=== PATIENT | female | born 1940 | race Caucasian/White ===

== ENCOUNTER 2023-08-22 18:48 | Inpatient (IN) | payer MEDICARE, SELFPAY ==
[2023-08-22] VITALS (16 sets, daily range): BP systolic 121–167; BP diastolic 52–117; BMI 27.4
--- NOTE | 2023-08-22 17:51 | ED.GENMED ---
History of Present Illness
General
Chief Complaint: Cardiac Symptoms
Source: patient and physician
Exam Limitations: dementia
Time Seen by Provider: 08/22/23 17:51
History of Present Illness
History of Present Illness:
See MDM
Past History
Past History
ED Past Medical History: HTN and Hypercholesterolemia
ED Past Surgical History: Cardiac
Social History
Tobacco: Non-smoker
Alcohol: None
Phy Exam
Physical Exam
Physical Exam:
See MDM
MDM/Problems Addressed
Differential Diagnosis Includes:
HPI and MDM Narrative:
83-year-old female presenting from [place] emergency department for third-degree block. Patient was evaluated in the emergency department at [place] by Dr. Valdez. He called me explain the situation. She requires transfer to [facility]
for pacemaker battery change. He also made [facility] charge lpn Dr. Ascencio aware. Patient has a permanent pacemaker and is pacemaker dependent. Her battery is at end-of-life and it is in safe mode. Patient is demented and offers no complaint to
me
When EMS arrived, they indicated that her blood pressure was low. On arrival, blood pressure has normalized. Patient is pleasantly demented and offers no complaints.
When patient arrived, I made the hospitalist and Dr. Ascencio aware. Dr. Ascencio will make his colleague Dr. Rodriguez aware since she is on-call
Physical exam
General: Lying in bed comfortably
HEENT: protecting airway
Neck: appears supple
CV: No evidence of cyanosis. Bradycardic but regular
Resp: No accessory muscle use. Lungs clear
Abd: Non-distended
Extremities: No deformities
Neuro: Confused. Moving all 4 extremities
Psych: Flat affect
Skin: Intact
Problems Addressed including Acute and Chronic Conditions affecting care:
1. Complete heart block
Acuity: acute
Prognosis: unstable
Details: Secondary to pacemaker battery end-of-life. ZOLL pads placed on arrival. Cardiology made aware
Updates
Differential Diagnosis (but not limited to): Heart block, pacemaker dysfunction
Testing considered:
Drug therapy (if applicable): OTC meds, please see d/c instruction regarding Rx drugs
Amount and/or Complexity of Data Reviewed
Clinical info obtained from: Patient , Cardiology
External data reviewed: Patient presents with blood work done at [place] showing no significant abnormalities
Labs I independently reviewed (but not limited to): Electrolytes within normal limit
Radiology: N/A
Pulse Ox: not hypoxic
EKG independently reviewed: Ventricular paced, bradycardic, no STEMI
Adult High School Instructor: Ventricular paced
Critical Care: The high probability of a clinically significant, sudden or life threatening deterioration of the cardiovascular system(s) required my full and direct attention, intervention and personal management. The aggregate critical care time
was 31 minutes. This time is in addition to time spent performing reported procedures but includes the following:
[x] Data Review and interpretation
[x] Patient assessment and monitoring of vital signs
[x] Documentation
[x] Medication orders and management
Risk of Complication:
Social Determinants of health: Good social support
Discussed with other providers: Hospitalist, charge lpn
Escalation of Care includes Admit/Obs: Given the heart block and being pacer dependent, will admit for pacemaker battery change
Occasional wrong word or 'sound a like' substitutions may have occurred due to the inherent limitations of voice recognition software. Read the chart carefully and recognize, using context, where substitutions have occurred.
*Critical Care Note
Total Time (30-74mins, 75-104mins- exclusive of procedures): 31 min
ED Attending Note
-
Portions of this chart may have been created with voice recognition software.� Occasional wrong word or��sound alike� substitutions may have occurred due to the inherent limitations of voice recognition software.
Discharge Plan
Departure
Patient Disposition: Admit
Date of Disposition: 08/22/23
Time of Disposition: 17:53
Admit to: CVICU
Presentation/result/management discussed w/ accepting MD/DO: Hospitalist
Discharge Problem:
Third degree heart block
--- NOTE | 2023-08-22 18:00 | HPS.HSE ---
Addendum entered and electronically signed by Og Catalan MD 08/22/23 18:31:
I saw and examined the patient.
The CARDIAC REHAB NURSE or PA's note was reviewed and I agree with the note.
Comment: 83-year-old female sent from [place] ER for pacemaker generator change tomorrow. Her pacemaker battery has been extremely low and she is in safety mode.
167/65, 50, 18, 96% RA
NAD, awake and alert, NCAT
queenie, reg rhythm, normal S1/S2
CTAB
CN2-12 intact
Tele with 3rd deg HB, rate 50
BMP and CBC from [facility] reviewed, unremarkable
Third-degree heart block due to low pacemaker battery:
-For generator change tomorrow
-Case discussed with Dr. Walker
-admit ti IVU
-Zol pads to remain in place
-c/s to cardiology, Dr. Minoo Rodriguez is electronic industrial controls mechanic [facility]
DM2:
-holding Metformin
-SSI/accuchecks for now
-diabetic diet until midnight after which the patient will be n.p.o.
Original Note:
Family Physician
-
Family Physician:
Chief Complaint
-
pacer battery severely low in power
History of Present Illness
83-year-old with past medical history for hypertension, borderline diabetes, A-fib, heart block, Parkinson dementia presented to us from [place] for pacer change. Patient had appointment with acid etch operator today and was noted to have low battery
and pacer. Patient denied any chest pain, short of breath. Patient denied any headache, dizziness, syncopal episode. Patient denied fever, chills. Patient denied abdominal pain, nausea, vomiting, diarrhea. Patient denied dysuria hematuria.
Patient had pacemaker since 2013.
Family knew, her pacer battery was in low since October. Since the hip replacement patient was in rehab, long term and took a very long time to get an cardiology appointment .
Medical History
Past Medical History
Past Medical History: Reports Other
Additional Past Medical History:
Hypertension
Borderline diabetes
A-fib
Heart block
Parkinson dementia
Past Surgical History: Reports Other
Additional Past Surgical History:
Left chest wall pacemaker
Partial hip replacement
Appendectomy
Cholecystectomy
Lumbar fusion
Melanoma on scalp removed
Social History
Tobacco: Non-smoker
Alcohol: None
Drug: None
Personal: Single
Living: Assisted Living
Family History
Family History: Not pertinent
Allergies / Home Medications
Allergies reflects when Allergies were last updated in [employer].
Home Medications with original date entered in [employer]
Allergy/Medication List:
Allergies
Allergy/AdvReac Type Severity Reaction Status Date / Time
Penicillins Allergy Rash Verified 08/22/23 17:53
Home Medications
acetaminophen 500 mg tablet 1,000 mg PO BID PRN mild pain/fever 08/22/23
atorvastatin 40 mg tablet 40 mg PO DAILY 08/22/23
bisacodyl 10 mg rectal suppository (Dulcolax (bisacodyl)) 10 mg IA DAILY PRN constipation 08/22/23
donepezil 5 mg tablet 5 mg PO BID 08/22/23
duloxetine 30 mg capsule,delayed release 30 mg PO DAILY 08/22/23
magnesium hydroxide 400 mg/5 mL oral suspension (Milk of Magnesia) 30 ml PO DAILY PRN constipation 08/22/23
memantine 10 mg tablet 10 mg PO BID 08/22/23
metformin 500 mg tablet 500 mg PO BID 08/22/23
risperidone 0.5 mg tablet 0.25 mg PO DAILY 08/22/23
sennosides 8.6 mg-docusate sodium 50 mg tablet 1 tab-cap PO DAILY 08/22/23
sodium phosphates 19 gram-7 gram/118 mL enema (Fleet Enema) 118 ml IA DAILY PRN constipation 08/22/23
venlafaxine 37.5 mg tablet,extended release 24 hr 37.5 mg PO BID 08/22/23
Review of Systems
-
Constitutional: Reports No Symptoms
EENT: Reports No Symptoms
Respiratory: Reports No Symptoms
Cardiac: Reports No Symptoms
Abdomen/GI: Reports No Symptoms
: Reports No Symptoms
Musculoskeletal: Reports No Symptoms
Skin: Reports No Symptoms
Neurological: Reports No Symptoms
Endocrine: Reports No Symptoms
Hematologic/Lymphatic: Reports No Symptoms
Psych: Reports No Symptoms
Physical Exam
Vital Signs
Vital Signs
Pulse Resp BP Pulse Ox
50 18 167/65 96
08/22/23 17:48 08/22/23 17:48 08/22/23 17:48 08/22/23 17:48
Physical Exam
General: Well Developed, Well Nourished and No Apparent Distress
HEENT: NormoCephalic, Moist mucous membranes and Atraumatic
Respiratory: Clear
Cardiac: S1/S2 and Regular Rhythm; No Murmur or Rub
GI: Soft, Non Tender, Non Distended and Normal Bowel Sounds; No Organomegaly
Rectal: Deferred by Provider
Musculoskeletal: No Clubbing, No Cyanosis and No Edema
Skin: No Rash
Neuro: AO x 3 and Nonfocal/grossly intact
Psych: Calm
Data Reviewed
-
Lab Data: Labs Reviewed by me
Impression/Plan
-
#complete heart block/ pacer battery low
-for generator change tomorrow
-cardiology consulted
-NPO after MN
-Obtain EKG
#hld
-statin continued
#Parkinson dementia/depression
-Aricept continued
-duloxetine continued
-memantine continued
-Risperidone continued
-Venlafaxine continued
# Diabetes
-Hold metformin
-Sliding scale
-Carbohydrate controlled diet until midnight
-N.p.o. after midnight
# DVT prophylaxis
-SCDs
# CODE STATUS
-DNR
[2023-08-22 18:08] LABS: % Basophils 0.4 % (0-2); % Eosinophils 5.4 % (0-6); % Immature Granulocytes 0.6 % (0-0.5); % Lymphocytes 30.1 % (20.5-51.1); % Monocytes 7.5 % (1.7-9.3); Absolute Eosinophils 0.5 10^3/uL (0-0.7); Absolute Immature Granulocytes 0.1 10^3/uL (0-0.05); Absolute Lymphocytes 2.7 10^3/uL (1.2-3.4); Absolute Monocytes 0.7 10^3/uL (0.1-0.6); Hematocrit 41.5 % (37.0-47.0); Mean Corp Hgb Conc. 33.7 g/dL (33.0-37.0); Mean Corpuscular Hgb 31.5 pg (27.0-31.0); Mean Corpuscular Volume 93.3 fL (81.0-99.0); Mean Platelet Volume 9.5 fL (7.4-10.4); Nucleated Red Blood Cells % 0 %; Platelet Count 276 10^3/uL (130-400); Red Blood Cell Count 4.45 10^6/uL (4.20-5.40); Red Cell Dist. Width 13.1 % (11.5-14.5); White Blood Cell Count 8.9 10^3/uL (4.8-10.8)
[2023-08-22 18:20] LABS: APTT 30.2 Sec (23.4-35.0)
[2023-08-22 18:23] LABS: ALT (SGPT) 22 U/L (0-35); AST (SGOT) 29 U/L (14-36); Albumin 3.8 g/dl (3.5-5.0); Alkaline Phosphatase 85 U/L (38-126); Blood Urea Nitrogen 21 mg/dl (7-17); Carbon Dioxide 28 mmol/L (22-30); Chloride 100 mmol/L (98-107); Glucose 139 mg/dl (70-99); Magnesium 1.5 mg/dl (1.6-2.3); Potassium 4.1 mmol/L (3.5-5.1); Sodium 139 mmol/L (135-145); Total Protein 6.6 g/dl (6.3-8.2); eGFR > 60.00
[2023-08-22 18:51] LABS: TSH Reflex To Free T4 1.89 uIU/ml (0.47-4.68)
[2023-08-22 19:20] LABS: Hematocrit 38.7 % (37.0-47.0); Hemoglobin 13.1 g/dL (12.0-16.0); Mean Corp Hgb Conc. 33.9 g/dL (33.0-37.0); Mean Corpuscular Hgb 31.7 pg (27.0-31.0); Mean Corpuscular Volume 93.7 fL (81.0-99.0); Mean Platelet Volume 9.4 fL (7.4-10.4); Platelet Count 255 10^3/uL (130-400); Red Blood Cell Count 4.13 10^6/uL (4.20-5.40); Red Cell Dist. Width 12.9 % (11.5-14.5); White Blood Cell Count 7.7 10^3/uL (4.8-10.8)
[2023-08-22] MEDS: MAGNESIUM OXIDE 500 MG PO (22:27)
[2023-08-22] MEDS: NAMENDA 10 MG PO (23:46)
[2023-08-22] MEDS: EFFEXOR XR 37.5 MG PO (23:46)
[2023-08-22] MEDS: ARICEPT 5 MG PO (23:46)
[2023-08-23] VITALS: BP 112/77
[2023-08-23 00:31] VITALS: BP 141/49
--- NOTE | 2023-08-23 00:45 | PTCARENOTE ---
Received patient from ED at 0030, patient Alert to self only, at times non verbal. Patient oriented to room/unit. Date, time, location and situation reinforced with patient. Bed alarm applied to patients bed for safety. Patient Vpaced on monitor
with HR in the 50's, VSS, lungs diminished bilaterally, SPO2 94% on RA. Patient incontinent bowel/bladder, attends CDI at this time. Full assessment completed as documented, plan of care explained to patient.
[2023-08-23 01:05] VITALS: BMI 27.4
[2023-08-23 03:52] VITALS: BP 141/52
--- NOTE | 2023-08-23 03:52 | PTCARENOTE ---
no acute changes in assessment, patient remains Vpaced with HR in the 50's, VSS.
[2023-08-23 04:49] LABS: Hemoglobin 13.4 g/dL (12.0-16.0); Mean Corp Hgb Conc. 33.5 g/dL (33.0-37.0); Mean Corpuscular Hgb 31.2 pg (27.0-31.0); Mean Corpuscular Volume 93.2 fL (81.0-99.0); Mean Platelet Volume 9.6 fL (7.4-10.4); Platelet Count 258 10^3/uL (130-400); Red Blood Cell Count 4.29 10^6/uL (4.20-5.40); Red Cell Dist. Width 12.9 % (11.5-14.5); White Blood Cell Count 9.4 10^3/uL (4.8-10.8)
[2023-08-23 05:32] LABS: Blood Urea Nitrogen 16 mg/dl (7-17); Calcium 9.5 mg/dl (8.4-10.2); Carbon Dioxide 29 mmol/L (22-30); Chloride 102 mmol/L (98-107); Estimated Creatinine Clearance 68 ml/min; Glucose 166 mg/dl (70-99); Potassium 4.1 mmol/L (3.5-5.1); Sodium 138 mmol/L (135-145); eGFR > 60.00
--- NOTE | 2023-08-23 07:19 | CON.CAR ---
Addendum entered and electronically signed by Max Montalvo DO 08/23/23 09:15:
I saw and examined the patient.
The Desulfurizer Operator's note was reviewed and I agree with the note.
Comment:
Plan:
Pt was transferred from [facility] for gen change
Dr Walker to do gen change today
Outpt follow up with [facility]
Stable cv status
Consider echo
Reviewed with nursing.
Original Note:
Consultation
Consultation Request
Date/Time Consultation Requested: 08/22/23 at 1752
Date/Time Consultation Performed: 09/12/23 at 0745
Requesting Provider: Dr. Catalan
Performing Provider: Dr. Montalvo
Reason for Consultation: ER to ER transfer for generator change
Medical History
-
History of Present Illness:
Patient came to [facility] from [facility] ER last evening for generator change and cardiology is consulted. Patient with dementia and was undergoing rehab at [facility] after hip surgery. Patient has a PPM, unknown brand, in place since 2013. Not
clear which column precaster the patient previously followed with, but patient's family reported to ER staff that they were aware of patient's pacemaker generator being near [place] as far back as 10/2022. Patient was seen as a new patient at [facility] yesterday
and on device check was in safe mode and pacing at VOO 50. Patient was sent to [facility] ER and then transferred to ER with a plan for generator change today. Patient denies chest pain, SOB or syncope, but is a poor historian overall.
PMH:
PPM, unknown brand since 2013
Dementia
DM 2
Past Medical History
Past Medical History: Other (in HPI)
Past Surgical History: Appendectomy, Cardiac (PPM), Cholecystectomy and Orthopedic
Social History
Tobacco: Non-Smoker
Alcohol: None
Drug: None
Living: Senior Living
Family History
Family History: Unable to Obtain
Allergies / Home Medications
Allergy/AdvReac Type Severity Reaction Status Date / Time
Penicillins Allergy Rash Verified 08/22/23 17:53
Medication Instructions Recorded Confirmed Type
acetaminophen 500 mg tablet 1,000 mg PO BID PRN mild pain/fever 08/22/23 08/22/23 History
atorvastatin 40 mg tablet 40 mg PO DAILY 08/22/23 08/22/23 History
bisacodyl 10 mg rectal suppository 10 mg ID DAILY PRN constipation 08/22/23 08/22/23 History
(Dulcolax (bisacodyl))
donepezil 5 mg tablet 5 mg PO BID 08/22/23 08/22/23 History
duloxetine 30 mg capsule,delayed 30 mg PO DAILY 08/22/23 08/22/23 History
release
magnesium hydroxide 400 mg/5 mL 30 ml PO DAILY PRN constipation 08/22/23 08/22/23 History
oral suspension (Milk of Magnesia)
memantine 10 mg tablet 10 mg PO BID 08/22/23 08/22/23 History
metformin 500 mg tablet 500 mg PO BID 08/22/23 08/22/23 History
risperidone 0.5 mg tablet 0.25 mg PO DAILY 08/22/23 08/22/23 History
sennosides 8.6 mg-docusate sodium 1 tab-cap PO DAILY 08/22/23 08/22/23 History
50 mg tablet
sodium phosphates 19 gram-7 118 ml ID DAILY PRN constipation 08/22/23 08/22/23 History
gram/118 mL enema (Fleet Enema)
venlafaxine 37.5 mg 37.5 mg PO BID 08/22/23 08/22/23 History
tablet,extended release 24 hr
Review of Systems
-
History Source: Patient and Transfer Record
All other systems: Negative unless noted
Physical Exam
Vital Signs
Temp Pulse Resp BP Pulse Ox
98.0 F 50 16 141/52 93
08/23/23 03:53 08/23/23 06:00 08/23/23 03:53 08/23/23 03:52 08/23/23 03:53
GEN: NAD, AAO to self only
HEENT: EOMI, MMM
LUNGS: Clear anterolaterally with poor inspiratory effort, no wheeze or rales
CV: Reg, S1/S2, no murmur
ABD: soft, BS+, NT, ND
EXT: Trace to +1 B/L LE edema. No clubbing, cyanosis or lesions B/L
NEURO: Gross non-focal
SKIN: Warm, dry and pink. No rash
Lab Results
08/23/23 04:28
08/23/23 04:28
Impression / Plan
-
PCP: Dr. Suzanna Valencia
Cardiology: New patient to [facility], unknown previous
Impression:
[facility] ER to ER transfer for near battery depletion of PPM 08/22/23
3rd degree heart block, pacemaker dependent
PPM, unknown brand since 2013
tripped to safe mode, VOO 50
Dementia
DM 2
Plan:
-Patient came to [facility] from [facility] ER last evening for generator change and cardiology is consulted. Patient with dementia and was undergoing rehab at [facility] after hip surgery. Patient has a PPM, unknown brand, in place since 2013. Not
clear which column precaster the patient previously followed with, but patient's family reported to ER staff that they were aware of patient's pacemaker generator being near [place] as far back as 10/2022. Patient was seen as a new patient at [facility] yesterday
and on device check was in safe mode and pacing at VOO 50. Patient was sent to [facility] ER and then transferred to [facility] with a plan for generator change today. Patient denies chest pain, SOB or syncope, but is a poor historian overall.
-NPO for generator change today
-Currently VOO at 50 while in safe mode. ECG reviewed by me paced at 50.
-EF unknown and no records available, none in her paper chart, not sure if they were misplaced in the ER. Will check with column precaster performing her generator change to see if they want an echo. Apparently this was a new patient to the [facility] office
yesterday
-Labs reviewed by me with stable renal function
--- NOTE | 2023-08-23 07:37 | W.PN.HOSP.TC ---
Addendum entered and electronically signed by Og Catalan MD 08/23/23 13:05:
Unexpected rapid recovery.
Total time spent on d/c = 31 min. This included today's physical exam, progress note, review of laboratory and diagnostic data, preparation of discharge documents and prescriptions, and discussions about the pt's hospital course and discharge plan
with the patient and other medical illustrator involved in the patient's care.
Original Note:
Today's Communication/Plan
-
See bold
Assessment / Plan
Assessment / Plan
Gen: NAD, awake and alert
Eyes: EOMI, PERRLA, no scleral icterus.
Neck: supple.
CV: Bradycardic, regular rhythm, +S1/S2, no m/r/g.
Resp: CTAB anteriorly, no rales, wheezes, or rhonchi.
Abd: +BS, soft, NT, ND
Skin: No rashes.
Neuro: CN 2-12 intact, non-focal.
Psych: Normal mood and affect.
Third-degree heart block due to low pacemaker battery:
-For generator change today
-Cardiology following
DM2:
-holding Metformin
-SSI/accuchecks
HLD:
-cont statin
Parkinson's Disease:
-with Parkinson's dementia
-cont Aricept/Namenda
Depression:
-cont Venlafaxine/Risperdone/Cymbalta
DNR/SCDs
Anticipated Discharge: Within 24 hours
Subjective/Interval History
-
Date of Service: August 23, 2023
Patient currently not answering questions. As per nursing patient has had no acute complaints.
Objective Data
-
Labs:
Laboratory Results
08/23/23
04:28
WBC 9.4
Hgb 13.4
Hct 40.0
Plt Count 258
Sodium 138
Potassium 4.1
Chloride 102
Carbon Dioxide 29
BUN 16
Creatinine 0.5 L
Glucose 166 H
Calcium 9.5
Vital Signs:
Vital Signs
Temp Pulse Resp BP Pulse Ox
98.0 F 50 16 141/52 93
08/23/23 03:53 08/23/23 07:00 08/23/23 03:53 08/23/23 03:52 08/23/23 03:53
[2023-08-23 08:28] VITALS: BP 139/53
[2023-08-23 08:30] LABS: Glucose - Point of Care 176 mg/dl (70-99)
[2023-08-23 08:54] LABS: Glycohemoglobin (HgbA1c) 8.8 % (4.0-5.6)
[2023-08-23] MEDS: EFFEXOR XR 37.5 MG PO (10:13)
[2023-08-23] MEDS: NAMENDA 10 MG PO (10:14)
[2023-08-23] MEDS: LIPITOR 40 MG PO (10:14)
[2023-08-23] MEDS: ARICEPT 5 MG PO (10:14)
[2023-08-23] MEDS: RISPERDAL 0.25 MG PO (10:14)
[2023-08-23] MEDS: CYMBALTA DELAYED RELEASE 30 MG PO (10:14)
--- NOTE | 2023-08-23 10:14 | ITS.CL.PACE ---
Live In Caregiver - Pacemaker Implant
Pacemaker Implant
Procedure Report:
PACEMAKER GENERATOR CHANGE
Date of Procedure: August 23, 2023
Primary Care Physician: Dr. Suzanna Valencia
Primary Behavioral Health Assistant: Dr. Flex Kendall
Procedures:
1. Removal of a dual chamber PPM generator at [place]
2. Implant of a new dual chamber PPM generator
Indication of Procedure:
1. PM generator at [facility]
2. Non-reversible symptomatic bradycardia due to:third degree AV block.
Indication/History: The patient is a 83-year-old woman with a past medical history significant for profound dementia, Parkinson's disease, hypertension, and status post pacemaker presumably for third-degree AV block who presented as a new patient
yesterday to the office. EKG showed normal sinus rhythm with third-degree AV block and a ventricular paced rhythm at 50 bpm.
Antibiotic: Ancef 2 g IV
Sedation/anesthesia: Per anesthesia staff.
Description of Procedure: 'Time out' was called and confirmed. The patient was prepped and draped in sterile fashion. Lidocaine with epinephrine was used for local anesthesia. An incision was made along the previous incision and the device and
leads were carefully dissected from the pocket. Hemostasis was obtained with electrocautery. The leads were from the device header and tested using an external analyzer. The pocket was liberally irrigated with antibiotic solution. Once
testing (see below) showed adequate and stable function, the leads were connected to the generator header and the leads and generator were placed within the pocket. The pocket was closed in the typical fashion.
SURGICAL POCKET REVISION:
Surgical (blunt dissection and ellectrocautery) pocket revision was performed. The existing device/pocket has moved [ ] cm towards the [ ] aspect. Additionally, the new pacemaker generator is different in size and shape. Also, there is heavy
amount of fibrous scarring requiring careful surgical dissection (blunt dissection and electrocautery) to safely expose the leads and generator. A partial surgical capsulectomy was performed, removing a several large portions of the fibrous capsule
to allow better placement of the leads and generator within the pocket and to reduce the risk of replacement related infection. The pocket was revised with movement of the new pocket so that the new device sits [ ] cm more towards the [ ] aspect.
EXPLANTED PPM GENERATOR: [employer] model K173 serial #[id number] implanted 10/04/2013
IMPLANTED PPM GENERATOR: [employer] model L331 Accolade MRI IS�1 serial #[id number]
Existing RA lead: Guidant 4480 Fineline serial #[id number]
Existing RV lead: Guidant 4457 Fineline serial #[id number]
DEVICE TESTING:
Sensing: RA 1.5 mV, RV [PACED] mV
Capture: RA 0.6V@0.4ms, RV 0.5V@0.5ms
Ohms: RA 492 , RV 480
FINAL PROGRAMMING
Basil Pacing: DDD 60-120 ppm
Complications: None
CONCLUSIONS:
1. Successful explant of a dual chamber permanent pacemaker
2. Successful implant of a dual chamber permanent pacemaker
RECOMMENDATIONS:
1. Routine post-op care.
2. In-Office wound check within 7 days.
3. Office interrogation in 4 weeks
Copy to: Dr. Suzanna Valencia
[2023-08-23] MEDS: AZACTAM 2000 MG IV (11:23)
--- NOTE | 2023-08-23 11:33 | CM ---
Addendum entered by MANDY Willis 08/23/23 13:46:
Pt. for DC today back to [facility].
Call to edmond/Dana. She is prepared to accept patient back today.
Ambul. arranged for 1729 PU.
Call to patient's POASunni to notify of DC. She is aware/agreeable.
PLAN: Return to [facility] via ambul. today
Original Note:
CM following for DC planning needs.
Pt. transferred from [facility] on 08/22.
Pt. is a senior living resident of [facility]. Call to [place], spoke w edmond/ Dana (p: [phone], c: [phone]).
Per Dana, pt. resides in [place] [facility]. She is a private pay bed hold.
Plan to return to [place] once medically stable. Notified Dana of anticipated DC date.
Will need ambul. transport back due to Dementia.
PLAN: Return to [facility]
[2023-08-23] MEDS: VANCOCIN 200 IV (12:00)
[2023-08-23 12:21] VITALS: BP 130/52
--- NOTE | 2023-08-23 13:02 | W.DCSUMMARY ---
Discharge Summary
Discharge Data
Date of Admission: 08/22/23
Date of Discharge: 08/23/23
-
Pending Results: No
Hospital Course
Primary diagnoses:
Third-degree heart block due to low pacemaker battery s/p generator change in August 23, 2023
Secondary diagnoses:
Type 2 diabetes mellitus
Hyperlipidemia
Parkinson's disease
Depression
Consultants:
Cardiology
Imaging:
None
Hospital course: 83-year-old female who was admitted yesterday evening with third-degree heart block due to low pacemaker battery as outlined in the H&P done on admission. The patient was placed on telemetry. She underwent a generator change on
August 23, 2023. She tolerated the procedure well and is being discharged in medically stable condition.
Discharge Plan
-
Patient Disposition: Home (Routine Discharge)
Discharge Diagnosis/Procedures: Third-degree heart block, generator change
Condition: Good
Diet: Diabetic, Carb Controlled
Activity: With assistance
Driving Restrictions: No driving
Bathing Restrictions: [place] to Shower
Blood Work: BMP and CBC in 1 week, prescription from PCP
Stand Alone Forms: DC Inst - Implanted Device
Referrals:
[facility] [Provider Group] - 08/28/23 11:00 am (Incision check appointment)
Suzanna Valencia MD [Family Provider] - in less than 1 week
Prescriptions:
Continued
atorvastatin 40 mg Tablet
40 mg PO DAILY
donepezil 5 mg Tablet
5 mg PO BID
sennosides-docusate sodium 8.6-50 mg Tablet
1 tab-cap PO DAILY
acetaminophen 500 mg Tablet
1,000 mg PO BID PRN (Reason: mild pain/fever)
magnesium hydroxide [Milk of Magnesia] 400 mg/5 mL Suspension
30 ml PO DAILY PRN (Reason: constipation)
bisacodyl [Dulcolax (bisacodyl)] 10 mg Suppository
10 mg NV DAILY PRN (Reason: constipation)
Fleet Enema 19-7 gram/118 mL Enema
118 ml NV DAILY PRN (Reason: constipation)
risperidone 0.5 mg Tablet
0.25 mg PO DAILY
memantine 10 mg Tablet
10 mg PO BID
duloxetine 30 mg Capsule,Delayed Release(Dr/Ec)
30 mg PO DAILY
venlafaxine 37.5 mg Tablet Extended Release 24hr
37.5 mg PO BID
metformin 500 mg Tablet
500 mg PO BID Qty: 0 0RF
Rx Instructions:
restart 08/25/23
Discharge Orders:
Discharge Patient (As Directed); Ordered 08/23/23
Ordered By: Og Catalan
Care Plan Goals
Care Plan Goals:
Problem: Readiness for enhanced knowledge related to diagnosis and treatment plan
Goal: Understand your diagnosis and treatment plan needs, including medications if applicable.
Instructions: Know your diagnosis, underlying causes and treatment plan options, including medications if applicable. Consult with your health care team to learn about your diagnosis and treatment plan, including medications if applicable.
--- NOTE | 2023-08-23 13:15 | PTCARENOTE ---
received pt post gen change. site is [facility]. pt offers no complaints at this time. pt is resting in bed comfortably. pt educated on plan of care for the evening. call gonzalez within reach. bed alarm in place.
[2023-08-23 14:20] LABS: Glucose - Point of Care 165 mg/dl (70-99)
[2023-08-23 15:27] VITALS: BP 108/65
--- NOTE | 2023-08-23 18:32 | PTCARENOTE ---
d/c instructions faxed to [facility], spoke with Narcisa. pt IV and tele removed. pt left with wheelchair, belongings from room and PPM transmitter via ambulance.
== END 2023-08-23 18:42 | DRG 245 ==
LOC: IVU 18:48
PROVIDERS: Internal Medicine Interventional Cardiology; Registered Nurse; ADMITTING PHYSICIAN Internal Medicine; EMERGENCY PHYSICIAN Student in an Organized Health Care Education/Training Program; FAMILY PHYSICIAN Family Medicine; OTHER PHYSICIAN Nuclear Medicine Nuclear Cardiology
PROC: 0JH608Z Insertion of Defibrillator Generator into Chest Subcutaneous Tissue and Fascia, Open Approach (ICD-10-PCS; 2023-08-23)
PROC: 0JPT0PZ Removal of Cardiac Rhythm Related Device from Trunk Subcutaneous Tissue and Fascia, Open Approach (ICD-10-PCS; 2023-08-23)
DX: I44.2 Atrioventricular block, complete (principal); F02.83 Dementia in other diseases classified elsewhere, unspecified severity, with mood disturbance; E78.00 Pure hypercholesterolemia, unspecified; I10 Essential (primary) hypertension; F32.A Depression, unspecified; E11.9 Type 2 diabetes mellitus without complications; I48.91 Unspecified atrial fibrillation; G20.A1 Parkinson's disease without dyskinesia, without mention of fluctuations; Z95.0 Presence of cardiac pacemaker; Z96.649 Presence of unspecified artificial hip joint; Z85.820 Personal history of malignant melanoma of skin; Z88.0 Allergy status to penicillin; Z66 Do not resuscitate; Z79.84 Long term (current) use of oral hypoglycemic drugs
CPT/HCPCS: 33228; 80048; 80053; 82962; 83036; 83735; 84443; 85025; 85027; 85610; 85730; 87070; 93005; 99291; C1785